=== PATIENT | male | born 1955 | race African-American/Black ===

== ENCOUNTER 2023-01-27 18:41 | Observation (INO) | payer OTHER ==
[2023-01-27] MEDS ORDERED: SODIUM CHLORIDE 1,000 ML IV SCH (19:00)
[2023-01-27 19:19] LABS: BASO % 0.4 % (0-2.0); EOS % 1.5 % (0-4.5); HEMATOCRIT 32.1 % (35.4-49); HEMOGLOBIN 10.7 GM/dL (11.7-16.9); LYMPH % 28.4 % (8-40); MCH 26.1 pg (25.7-33.7); MCHC 33.4 g/dl (32.0-35.9); MEAN CELL VOLUME 78.2 fl (80-96); MEAN PLT VOLUME 7.4 fl (7.5-11.1); MONO % 8.8 % (3.8-10.2); NEUT % 60.9 % (42.8-82.8); PLATELET COUNT 346 10^3/uL (134-434); RBC 4.11 M/mm3 (4.00-5.60); RDW 14.6 % (11.9-15.9)
[2023-01-27 19:25] LABS: INR 1.1 (0.83-1.09); PROTHROMBIN TIME (PATIENT) 12.7 SEC (9.7-13.0)
[2023-01-27 19:28] LABS: ACTIVATED PTT 28.8 SECONDS (25.2-36.5)
[2023-01-27 19:36] LABS: POTASSIUM 3.7 mmol/L (3.5-5.1)
[2023-01-27 19:37] LABS: CALCIUM 9.2 mg/dL (8.5-10.1)
[2023-01-27 19:38] LABS: ALBUMIN 3.8 g/dl (3.4-5.0)
[2023-01-27 19:39] LABS: BLOOD UREA NITROGEN 12.5 mg/dL (7-18)
[2023-01-27 19:41] LABS: CREATININE 1.5 mg/dL (0.55-1.3)
[2023-01-27 19:43] LABS: TOT PROT 7.7 g/dl (6.4-8.2)
[2023-01-27 19:44] LABS: BILIRUBIN,TOTAL 0.4 mg/dL (0.2-1)
[2023-01-27 22:25] LABS: URINE APPEARANCE CLEAR; URINE BILIRUBIN NEGATIVE (NEGATIVE); URINE COLOR YELLOW; URINE GLUCOSE (UA) NEGATIVE (NEGATIVE); URINE KETONE NEGATIVE (NEGATIVE); URINE NITRITE NEGATIVE (NEGATIVE); URINE PROTEIN NEGATIVE (NEGATIVE)
[2023-01-27 22:26] LABS: URINE LEUK ESTERASE NEGATIVE (NEGATIVE)
[2023-01-27] MEDS ORDERED: ASPIRIN 81 MG CHEWABLE TABLETS PO ONE (22:35)
[2023-01-27] MEDS ORDERED: ASPIRIN 81 MG CHEWABLE TABLETS ONE (22:53)
[2023-01-28] MEDS ORDERED: ARTIFICIAL TEARS (POLYVINYL ALCOHOL) OPTH DROPS OU PRN (05:58)
[2023-01-28] MEDS ORDERED: GABAPENTIN 300 MG CAPSULE ONE (06:17)
[2023-01-28] MEDS: GABAPENTIN 300 MG CAPSULE PO SCH ×3 (06:20→22:49)
[2023-01-28] MEDS: SODIUM CHLORIDE 1,000 ML IV SCH (06:41)
[2023-01-28] MEDS: INSULIN SLIDING SCALE (NOVOLOG) 1 VIAL SQ SCH ×4 (08:00→22:45)
[2023-01-28 08:20] LABS: BASO % 0.5 % (0-2.0); EOS % 1.3 % (0-4.5); HEMATOCRIT 30.3 % (35.4-49); HEMOGLOBIN 9.9 GM/dL (11.7-16.9); LYMPH % 24.7 % (8-40); MCH 26.3 pg (25.7-33.7); MCHC 32.8 g/dl (32.0-35.9); MEAN PLT VOLUME 7.7 fl (7.5-11.1); MONO % 8.7 % (3.8-10.2); NEUT % 64.8 % (42.8-82.8); PLATELET COUNT 332 10^3/uL (134-434); RBC 3.78 M/mm3 (4.00-5.60); RDW 14.3 % (11.9-15.9); WHITE BLOOD COUNT 5.3 K/mm3 (4.0-10.0)
[2023-01-28 08:30] LABS: POTASSIUM 3.9 mmol/L (3.5-5.1)
[2023-01-28 08:36] LABS: CALCIUM 8.7 mg/dL (8.5-10.1)
[2023-01-28 08:37] LABS: BLOOD UREA NITROGEN 15.1 mg/dL (7-18); MAGNESIUM 1.9 mg/dL (1.8-2.4)
[2023-01-28] MEDS ORDERED: POLYETHYLENE GLYCOL (HEALTHYLAX) 3350 17 GM PACKET ONE (08:39)
[2023-01-28] MEDS ORDERED: chlordiazePOXIDE HCL 25 MG CAPSULE ONE (08:40)
[2023-01-28] MEDS ORDERED: LOSARTAN POTASSIUM 50 MG TABLET ONE (08:40)
[2023-01-28] MEDS ORDERED: hydrALAZINE HCL 25 MG TABLET (FP) ONE (08:40)
[2023-01-28 08:41] LABS: CREATININE 1.3 mg/dL (0.55-1.3); PHOSPHOROUS 3.4 mg/dL (2.5-4.9)
[2023-01-28] MEDS ORDERED: amLODIPine BESYLATE 10 MG TABLET (FP) ONE (08:41)
[2023-01-28] MEDS ORDERED: FERROUS SO4 325 MG TABLET (FP) ONE (08:41)
[2023-01-28] MEDS ORDERED: ASPIRIN 81 MG CHEWABLE TABLETS ONE (08:41)
[2023-01-28] MEDS: hydrALAZINE HCL 25 MG TABLET (FP) PO SCH ×2 (09:47→23:31)
[2023-01-28] MEDS: POLYETHYLENE GLYCOL (HEALTHYLAX) 3350 17 GM PACKET PO SCH (09:47)
[2023-01-28] MEDS: CHLORTHALIDONE 25 MG TABLET PO SCH (09:47)
[2023-01-28] MEDS: LOSARTAN POTASSIUM 50 MG TABLET PO SCH ×2 (09:47→23:31)
[2023-01-28] MEDS: ASPIRIN COATED 81 MG TABLET.EC PO SCH (09:47)
[2023-01-28] MEDS: FERROUS SO4 325 MG TABLET (FP) PO SCH (09:47)
[2023-01-28] MEDS: CYANOCOBALAMIN 1,000 MCG TABLET (FP) PO SCH (09:50)
[2023-01-28] MEDS: amLODIPine BESYLATE 10 MG TABLET (FP) PO SCH (09:51)
[2023-01-28 14:34] VITALS: BMI 28.1
[2023-01-28] MEDS ORDERED: SENNOSIDES 8.6MG TABLET (FP) PO SCH (22:00)
[2023-01-28] MEDS ORDERED: ATORVASTATIN CA 80 MG TABLET (FP) PO SCH (22:00)
[2023-01-29] MEDS: INSULIN SLIDING SCALE (NOVOLOG) 1 VIAL SQ SCH ×2 (06:12→10:48)
[2023-01-29] MEDS: GABAPENTIN 300 MG CAPSULE PO SCH ×2 (06:12→13:55)
[2023-01-29] MEDS: SODIUM CHLORIDE 1,000 ML IV SCH (06:12)
[2023-01-29] MEDS: LOSARTAN POTASSIUM 50 MG TABLET PO SCH (09:06)
[2023-01-29] MEDS: hydrALAZINE HCL 25 MG TABLET (FP) PO SCH (09:06)
[2023-01-29] MEDS: amLODIPine BESYLATE 10 MG TABLET (FP) PO SCH (09:07)
[2023-01-29] MEDS: POLYETHYLENE GLYCOL (HEALTHYLAX) 3350 17 GM PACKET PO SCH (09:11)
[2023-01-29] MEDS: CYANOCOBALAMIN 1,000 MCG TABLET (FP) PO SCH (09:11)
[2023-01-29] MEDS: CHLORTHALIDONE 25 MG TABLET PO SCH (09:11)
[2023-01-29] MEDS: ASPIRIN COATED 81 MG TABLET.EC PO SCH (09:11)
[2023-01-29] MEDS: FERROUS SO4 325 MG TABLET (FP) PO SCH (09:11)
[2023-01-29 15:31] VITALS: BP 126/69; PULSE 59; RESP 18; TEMP 98.1
[2023-01-29] MEDS ORDERED: metFORMIN HCL 500 MG TABLET (FP) PO SCH (16:30)
== END 2023-01-29 16:05 | disposition home or self-care (01) ==
LOC: JER 18:41 → JERBED 20:16 → INTOOBSV 20:16 → J4W 01-28 14:35
PROVIDERS: ADMIT Internal Medicine; ATTEND Internal Medicine
PROC: 3E0337Z Introduction of Electrolytic and Water Balance Substance into Peripheral Vein, Percutaneous Approach (ICD-10-PCS; principal; 2023-01-27)
DX: R29.810 Facial weakness (principal); I10 Essential (primary) hypertension; E11.40 Type 2 diabetes mellitus with diabetic neuropathy, unspecified; E78.00 Pure hypercholesterolemia, unspecified; Z86.73 Personal history of transient ischemic attack (TIA), and cerebral infarction without residual deficits
CPT/HCPCS: 36415; 70450-TC; 70496-TC; 70498-TC; 71045-TC-FY; 80048; 80053; 80061; 81003; 82550; 82962; 83036; 83735; 84100; 84484; 85025; 85610; 85730; 86850; 86900; 86901; 87086; 87635; 93005; 93010; 93306-TC; 93880-TC; 96360; 97116-GP; 97161-GP; 99285-25; G0378; Q9967

== ENCOUNTER 2023-02-12 16:46 | Emergency (ER) | payer OTHER ==
[2023-02-12 17:06] VITALS: BMI 25.2
[2023-02-12] MEDS ORDERED: LIDOCAINE VISCOUS 2% ORAL/TOP 15 ML UNIT-DOSE CUP MM ONE (18:27)
[2023-02-12] MEDS ORDERED: IBUPROFEN 400 MG TABLET (FP) PO ONE ×2 (18:39→18:50)
[2023-02-12] MEDS ORDERED: SODIUM CHLORIDE 1,000 ML IV ONE (18:53)
[2023-02-12 20:03] LABS: HEMATOCRIT 33.7 % (35.4-49); LYMPH % 20.5 % (8-40); MCH 25.4 pg (25.7-33.7); MCHC 32.8 g/dl (32.0-35.9); MEAN CELL VOLUME 77.6 fl (80-96); MEAN PLT VOLUME 8.2 fl (7.5-11.1); MONO % 13.7 % (3.8-10.2); NEUT % 65.4 % (42.8-82.8); PLATELET COUNT 273 10^3/uL (134-434); RBC 4.34 M/mm3 (4.00-5.60); WHITE BLOOD COUNT 5.2 K/mm3 (4.0-10.0)
[2023-02-12 20:04] LABS: BASO % 0.4 % (0-2.0)
[2023-02-12 20:39] LABS: POTASSIUM 4.2 mmol/L (3.5-5.1)
[2023-02-12 20:43] LABS: ALBUMIN 3.7 g/dl (3.4-5.0); BLOOD UREA NITROGEN 12.8 mg/dL (7-18); CALCIUM 9.1 mg/dL (8.5-10.1)
[2023-02-12 20:45] LABS: CREATININE 1.4 mg/dL (0.55-1.3)
[2023-02-12 20:47] LABS: BILIRUBIN,TOTAL 0.3 mg/dL (0.2-1); TOT PROT 7.5 g/dl (6.4-8.2)
[2023-02-12] MEDS ORDERED: ONDANSETRON 4 MG/2 ML VIAL IVPUSH ONE (22:38)
[2023-02-12] MEDS ORDERED: SODIUM CHLORIDE 0.9% 500 ML INFUS.BAG IV ONE (22:38)
[2023-02-12] MEDS ORDERED: DEXAMETHASONE SOD PHOSPHATE 10 MG/1 ML VIAL IVPUSH ONE (23:09)
[2023-02-13] MEDS ORDERED: DEXAMETHASONE SOD PHOSPHATE 10 MG/1 ML VIAL ONE (00:02)
[2023-02-13] MEDS ORDERED: ONDANSETRON 4 MG/2 ML VIAL ONE (00:02)
[2023-02-13 07:27] VITALS: BP 117/75; PULSE 65; RESP 18; TEMP 97.5
== END 2023-02-13 10:00 | disposition home or self-care (01) ==
LOC: JER 16:46
PROC: 3E033GC Introduction of Other Therapeutic Substance into Peripheral Vein, Percutaneous Approach (ICD-10-PCS; principal; 2023-02-12)
PROC: 3E033GC Introduction of Other Therapeutic Substance into Peripheral Vein, Percutaneous Approach (ICD-10-PCS; 2023-02-12)
PROC: 3E0337Z Introduction of Electrolytic and Water Balance Substance into Peripheral Vein, Percutaneous Approach (ICD-10-PCS; 2023-02-12)
DX: R50.9 Fever, unspecified (principal); R05.9 Cough, unspecified; R43.8 Other disturbances of smell and taste; J02.9 Acute pharyngitis, unspecified; R13.10 Dysphagia, unspecified; U07.1 COVID-19
CPT/HCPCS: 0241U-QW; 36415; 70490-TC; 71046-TC-FY; 80053; 84484; 85025; 87651; 93005; 93010; 99285-25; J1100